=== PATIENT | male | born 1970 | race Caucasian/White ===

== ENCOUNTER 2017-03-22 12:10 | Inpatient (IN) | payer OTHER ==
[~2017-03-22] VITALS: Ht 170.2 cm; Wt 68.5 kg
[2017-03-22 14:15] LABS: BASOPHIL % 0.2 % (0-2); PLATELET COUNT 295 x10^3mcL (130-400); RED CELL DISTRIBUTION WIDTH 13.3 % (11.5-14.5)
[2017-03-22 14:18] LABS: CALCIUM 9.5 mg/dL (8.5-10.1); CARBON DIOXIDE 31.4 mmol/L (21-32); CHLORIDE SERUM 102 mmol/L (98-107); GFR1 > 60 mL/min; GLUCOSE SERUM 107 mg/dL (74-106); SODIUM SERUM 141 mmol/L (136-145)
[2017-03-22 14:25] LABS: ALBUMIN 4.3 g/dL (3.4-5.0); ALKALINE PHOSPHATASE 81 U/L (46-116); ALT/SGPT 84 U/L (16-63); AST/SGOT 28 U/L (15-37); BILIRUBIN TOTAL 0.3 mg/dL (0.20-1.00); TOTAL PROTEIN, SERUM 7.6 g/dL (6.4-8.2)
[2017-03-22 15:51] VITALS: BP 138/82
[2017-03-22 16:19] LABS: MAGNESIUM 1.8 mg/dL (1.8-2.4); PHOSPHOROUS 3.1 mg/dL (2.5-4.9)
[2017-03-22 16:20] LABS: CHOLESTEROL/HDL RATIO 4.6
[2017-03-22 16:24] LABS: T3 TOTAL 1.24 ng/mL
[2017-03-22 16:27] LABS: FREE T4 2.09 ng/dL (0.76-1.46); FREE THYROXINE INDEX 4.4 ug/dL (1.4-4.5); T4(THYROXINE) 12.1 ug/dL (4.7-13.3)
[2017-03-22 17:36] VITALS: BP 126/89
[2017-03-22 23:08] VITALS: BP 117/84
[2017-03-23 02:12] LABS: microscopic required? YES; urine erythrocyte NEGATIVE (NEGATIVE)
[2017-03-23 02:23] LABS: AMPHETAMINE QUAL UR NONE DETECTED (NEG <=1000)
[2017-03-23 06:20] VITALS: BP 100/50
[2017-03-23 06:33] LABS: BASOPHIL % 0.2 % (0-2); PLATELET COUNT 272 x10^3mcL (130-400); RED CELL DISTRIBUTION WIDTH 13.5 % (11.5-14.5)
[2017-03-23 06:52] LABS: CALCIUM 9.3 mg/dL (8.5-10.1); CARBON DIOXIDE 30.4 mmol/L (21-32); CHLORIDE SERUM 104 mmol/L (98-107); GFR1 > 60 mL/min; GLUCOSE SERUM 99 mg/dL (74-106); PHOSPHOROUS 4.1 mg/dL (2.5-4.9); POTASSIUM SERUM 4.4 mmol/L (3.5-5.1); SODIUM SERUM 142 mmol/L (136-145)
[2017-03-23 10:43] VITALS: BP 131/84
[2017-03-23 14:20] VITALS: BP 137/80
[2017-03-23 17:58] VITALS: BP 115/76
[2017-03-23] MEDS ORDERED: PRI20 PO (20:32)
[2017-03-23] MEDS ORDERED: ECO81 PO (20:32)
[2017-03-23] MEDS ORDERED: METOPROLOL TART25 M1 PO (20:39)
[2017-03-23] MEDS ORDERED: ZES5 PO (20:40)
[2017-03-23 20:59] VITALS: BP 115/76
== END 2017-03-23 21:25 | disposition home or self-care (01) | DRG 243 ==
LOC: ED 12:10 → DU 14:48
PROVIDERS: Emergency Medicine; ADMIT Family Medicine
DX: K21.9 Gastro-esophageal reflux disease without esophagitis (principal); E78.5 Hyperlipidemia, unspecified; Z82.49 Family history of ischemic heart disease and other diseases of the circulatory system; Z87.891 Personal history of nicotine dependence; F12.10 Cannabis abuse, uncomplicated
CPT/HCPCS: 82962; 83880; 84439; J2270; J7030; Q0092